=== PATIENT | female | born 1935 | race Caucasian/White ===

== ENCOUNTER → 2017-11-20 | Outpatient (CLI) | payer OTHER ==
[~2017-11-20] MED LIST: ACETAMINOPHEN325 M1 PO; CALTRATE 600 +1 EAC1; EEMT DS 1.25-21 EACH; EES PO; FOLBIC RF TABL1 EACH; MAGNESIUM100 MG; MSM500 MG; MULTI VITAMIN1 EACH PO; MYRBETRIQ25 MG; OMEGA 3-6-9 CO1 EACH; OSTEO BI-FLEX1 EAC1; SYNTHROID75 MCG
== END ==
LOC: NUC 09:59
DX: Z13.820 Encounter for screening for osteoporosis (principal); M81.0 Age-related osteoporosis without current pathological fracture; M85.89 Other specified disorders of bone density and structure, multiple sites; Z78.0 Asymptomatic menopausal state

== ENCOUNTER → 2019-04-08 | Outpatient (CLI) | payer OTHER | LOC: RAD 12:38 | DX: M41.85 Other forms of scoliosis, thoracolumbar region (principal); M47.814 Spondylosis without myelopathy or radiculopathy, thoracic region; M41.86 Other forms of scoliosis, lumbar region; M47.816 Spondylosis without myelopathy or radiculopathy, lumbar region; M25.78 Osteophyte, vertebrae; M25.562 Pain in left knee ==

== ENCOUNTER → 2020-06-17 | Outpatient (CLI) | payer OTHER | LOC: BC 11:01 | PROVIDERS: ATTEND Neuromusculoskeletal Medicine & OMM | DX: Z12.31 Encounter for screening mammogram for malignant neoplasm of breast (principal) ==

== ENCOUNTER 2021-02-17 07:32 | Emergency (ER) | payer OTHER ==
[~2021-02-17] VITALS: Ht 165.1 cm; Wt 54.4 kg
[2021-02-17 08:21] LABS: HEMATOCRIT 39.6 % (37.0-47.0); HEMOGLOBIN 12.9 gm/dL (12.0-15.0); MCH 28.4 pg (26.0-34.0); MCHC 32.6 g/dL (28.0-37.0); PLATELET COUNT 120 thou/uL (150-400); RBC 4.55 mil/uL (4.20-5.00); WBC 2.5 thou/uL (4.0-11.0)
[2021-02-17 08:30] LABS: CALCIUM 8.2 mg/dL (8.5-10.1); CREATININE 0.9 mg/dL (0.6-1.0); POTASSIUM 3.5 mmol/L (3.5-5.1)
[2021-02-17 08:39] LABS: URINE BILIRUBIN NEGATIVE (Negative); URINE BLOOD NEGATIVE (Negative); URINE CLARITY CLOUDY; URINE COLOR YELLOW; URINE GLUCOSE-RANDOM* NEGATIVE (Negative); URINE KETONES NEGATIVE (Negative); URINE LEUKOCYTES-REFLEX NEGATIVE (Negative); URINE NITRITE-REFLEX NEGATIVE (Negative); URINE PROTEIN (DIPSTICK) NEGATIVE (Negative); URINE SPECIFIC GRAVITY 1.015 (1.005-1.035); URINE UROBILINOGEN 0.2 E.U./dl (0.2-1.0)
[2021-02-17 09:31] LABS: ABSOLUTE NEUTROPHILS 1.6 thou/uL (1.4-8.2)
[2021-02-17 09:32] LABS: ANISOCYTOSIS 1+
[2021-02-17 11:02] VITALS: BP 102/63
--- NOTE | 2021-02-18 12:26 | EKG ---
[address] [place] [place] [place] [address] ELECTROCARDIOGRAM REPORT Name: CARLOS ANDRADE Room #: DEP Erna#: [id number] Admission: 02/17/21 Attend Phys: Discharge: 02/17/21 Date of : 35 Report #: [id number] [facility] ED Test Date: 2021-02-17 Test Time: 07:38:23 Pat Name: CARLOS ANDRADE Department: Room: Gender: F [employer]: [place] : 1935 Requested By: Flash Roldan Order Number: [id number] MD: Sae Saez Measurements Intervals [place] Rate: 80 P: 89 ID: [id number] QRS: 13 QRSD: 88 T: 67 QT: 390 QTc: 450 Interpretive Statements Sinus rhythm Normal Compared to ECG 06/19/2013 20:51:59 No significant changes Electronically Signed On 02-18-2021 12:26:33 CDT by Sae Saez [email or web address] <ELECTRONICALLY SIGNED> By: Sae Saez MD, [facility] 02/18/21 1226 0738 0738 Sae Saez MD, [facility] /EPI
== END 2021-02-17 11:08 | disposition home or self-care (01) ==
LOC: ER 07:32
PROVIDERS: Student in an Organized Health Care Education/Training Program
DX: R51.9 Headache, unspecified (principal); R07.89 Other chest pain; E89.0 Postprocedural hypothyroidism; Z98.890 Other specified postprocedural states; Z79.891 Long term (current) use of opiate analgesic; Z79.1 Long term (current) use of non-steroidal anti-inflammatories (NSAID); Z79.899 Other long term (current) drug therapy